=== PATIENT | male | born 1975 | race Caucasian/White ===

== ENCOUNTER → 2024-07-28 13:55 | Outpatient (REF) | payer BC, SELFPAY | LOC: RAD 13:55 | PROVIDERS: ATTENDING PHYSICIAN Family Medicine Sports Medicine; FAMILY PHYSICIAN Student in an Organized Health Care Education/Training Program | DX: S43.431A Superior glenoid labrum lesion of right shoulder, initial encounter (principal) | CPT/HCPCS: 23350; 73040; 73222 ==